=== PATIENT | male | born 1955 | race Caucasian/White ===

== ENCOUNTER 2017-09-17 21:13 | Emergency (ER) | payer OTHER ==
--- NOTE | 2017-09-17 21:27 | PDOC ---
Rapid Medical Evaluation Chief Complaint: Chest Pain Time Seen by Provider: 09/17/17 21:19 Medical Evaluation: 09/17/17 21:20 Pt is a 61 yr old with c/o chest pain. EKG obtained in triage, nsr without ectopy Pt with c/o chest pain, radiates tot he back of neck started about one hour. PHM: DM, HTN, anxiety. Appears anxious while in triage. No signs of sob and can speak full sentences. Feels palpitations occuring Suspicious for anxiety attack. ordered ekg, labs, cardiac
[2017-09-17 21:28] VITALS: BP 131/87; PULSE 107; TEMP 98.1; BMI 37.2
--- NOTE | 2017-09-17 21:45 | PDOC ---
History of Present Illness - General Chief Complaint: Chest Pain Stated Complaint: CHEST PAIN Time Seen by Provider: 09/17/17 21:19 - History of Present Illness Initial Comments: 09/17/17 22:32 The patient is a 61 year old male with a history of HTN, HLD, DM who presents for evaluation of SOB and chest tightness. The patient reports onset of SOB and chest tightness in the setting of extreme anxiety earlier today with his symptoms since resolving on presentation to the ED. He reports similar symptoms in the past with various episode unrelated to exertion. He otherwise denies fevers, chills, nausea, vomiting, abdominal pain, or changes with urination or bowel movements. Past History - Past Medical History Allergies/Adverse Reactions: Allergies Allergy/AdvReac Type Severity Reaction Status Date / Time No Known Allergies Allergy Verified 09/17/17 21:28 Home Medications: Ambulatory Orders Insulin Degludec [Tresiba Flextouch U-100] 2 unit SQ DAILY 09/17/17 Valsartan 160 mg PO DAILY 09/17/17 COPD: No Diabetes: Yes HTN: Yes Hypercholesterolemia: Yes Psychiatric Problems: Yes (anxiety) - Surgical History Appendectomy: Yes Cholecystectomy: Yes - Suicide/Smoking/Psychosocial Hx Smoking History: Never smoked Have you smoked in the past 12 months: No Information on smoking cessation initiated: No Hx Alcohol Use: No Drug/Substance Use Hx: No Substance Use Type: None Review of Systems - Review of Systems Comments:: 09/17/17 22:33 Constitutional: No fevers, chills, fatigue, malaise HEENT: No Rhinorrhea, nasal congestion, visual changes Cardiovascular: Chest Tightness. No syncope, palpitations, lightheadedness Respiratory: SOB. No Cough, Hemoptysis, Gastrointestinal: No Abdominal pain, Nausea, Vomiting, Constipation, Diarrhea, Melena Genitourinary: No Dysuria, Frequency, Urgency, Hesitancy, Hematuria, Flank pain Musculoskeletal: No Myalgia, arthralgia Skin: No rashes, itching, bruising, pallor Neurologic: No Headache, Dizziness, Numbness, Weakness, or Tingling Psychiatric: No Hallucinations. No SI or HI *Physical Exam - Vital Signs Last Vital Signs Temp Pulse Resp BP Pulse Ox 98.1 F 107 H 22 131/87 98 09/17/17 21:23 09/17/17 21:23 09/17/17 21:23 09/17/17 21:23 09/17/17 21:23 - Physical Exam Comments: 09/17/17 22:34 General Appearance: Nourished. No Apparent Distress HEENT: EOMI, LAUREN. No Pharyngeal Erythema, Tonsillar Exudate, Tonsillar Erythema Neck: No Cervical Lymphadenopathy Respiratory/Chest: Lungs Clear, Normal Breath Sounds. No Crackles, Rales, Rhonchi, Wheezing Cardiovascular: Regular Rhythm, Regular Rate. No Murmur, Gallops, Rubs Gastrointestinal/Abdominal: Normal Bowel Sounds, Soft. No Guarding, Rebound, Tenderness Musculoskeletal: No CVA Tenderness Extremity: Normal Capillary Refill Integumentary: Normal Color, Dry, Warm Neurologic: Fully Oriented, Alert, Normal Mood/Affect, Normal Response, Heart Score/ECG Review #1 ECG reviewed & interpreted by me at: 22:35 General ECG Interpretation: Sinus Rhythm, Normal Rate, Normal Intervals, No acute ischemic changes ED Treatment Course - LABORATORY CBC & Chemistry Diagram: 09/17/17 21:52 09/17/17 21:52 Medical Decision Making - Medical Decision Making 09/17/17 22:35 The patient is a 61 year old male with a history of HTN, HLD, DM who presents for evaluation of SOB and chest tightness. Differential includes but is not limited to: Anxiety, ACS, Pneumonia, infectious, metabolic derangement. Given the patient's history, normal physical exam, and resolution of symptoms here in the ED, it is likely his symptoms are due to an anxiety attack. However, we will obtain a cbc, cmp, troponin, ekg, and chest plain film to evaluate for other etiologies. We will continue to monitor and reassess. 09/17/17 22:51 CBC, cmp, troponin are unremarkable. Chest plain film is unremarkable as preliminarily read by ER physician. EKG is unremarkable. The patient's symptoms are likely due to an anxiety attack. We are comfortable discharging the patient home at this time with primary care provider follow up. We discussed the plan and return precautions with the patient who voiced understanding and is agreeable with the plan. *DC/Admit/Observation/Transfer Diagnosis at time of Disposition: Anxiety attack - Discharge Dispostion Disposition: HOME Condition at time of disposition: Good Admit: No - Referrals - Patient Instructions Printed Discharge Instructions: DI for Anxiety -- Adult, DI for Atypical Chest Pain Additional Instructions: Please return to the ER if you experience concerning or worsening symptoms including worsening chest pain, difficulty breathing, fevers, or vomiting. Your lab results and x-ray were normal here in the ER. Your symptoms were likely due to an anxiety attack. Please call to schedule a follow up appointment with your primary care provider to discuss your ER visit and further management of your symptoms. - Post Discharge Activity
[2017-09-17 22:06] LABS: BASO % 0.8 % (0-2.0); EOS % 1.9 % (0-4.5); HEMATOCRIT 40.6 % (35.4-49); HEMOGLOBIN 13.3 GM/dL (11.7-16.9); LYMPH % 21.3 % (8-40); MCH 26.9 pg (25.7-33.7); MCHC 32.7 g/dl (32.0-35.9); MEAN CELL VOLUME 82.3 fl (80-96); MEAN PLT VOLUME 7.7 fl (7.5-11.1); MONO % 6.7 % (3.8-10.2); NEUT % 69.3 % (42.8-82.8); PLATELET COUNT 307 K/MM3 (134-434); RBC 4.93 M/mm3 (4.00-5.60); RDW 14.3 % (11.9-15.9); WHITE BLOOD COUNT 8.3 K/mm3 (4.0-10.0)
--- NOTE | 2017-09-17 22:18 | PDOC ---
Attending Attestation - HPI HPI: 09/17/17 22:28 The patient is a 61 year old male with a significant PMH of diabetes, HTN, and hyperlipidemia who presents to the emergency department with an episode of shortness of breath and chest tightness beginning approximately this morning. The patient reports feeling shortness of breath with associated chest tightness in the setting of significant anxiety this morning. He reports his symptoms have significantly improved since being in the ED. The patient reports these symptoms are similar to his previous anxiety episodes, prompting his visit. The patient notes he does not follow with a financial foundations representative. Allergies: NKA PCP: Dr. Brown (in [place]) <Luis House - Last Filed: 09/17/17 22:29> - Resident Resident Name: Dejan Gant - ED Attending Attestation I have performed the following: I have examined & evaluated the patient, The case was reviewed & discussed with the resident, I agree w/resident's findings & plan, Exceptions are as noted - Physicial Exam PE: 09/18/17 19:25 *Physical Exam General Appearance: Yes: Appropriately Dressed. No: Apparent Distress, Intoxicated HEENT: positive: EOMI, LAUREN, Normal ENT Inspection, Normal Voice, TMs Normal, Pharynx Normal. negative: Pale Conjunctivae, Photophobia, Scleral Icterus (R), Scleral Icterus (L) Neck: positive: Trachea midline, Normal Thyroid, Supple. negative: Tender, Rigid, Carotid bruit, Stridor, Lymphadenopathy (R), Lymphadenopathy (L), Thyromegaly Respiratory/Chest: positive: Lungs Clear, Normal Breath Sounds. negative: Chest Tender, Respiratory Distress, Accessory Muscle Use, Labored Respiration, RES, Crackles, Rales, Rhonchi, Stridor, Wheezing, Dullness Cardiovascular: positive: Regular Rhythm, Regular Rate, S1, S2. negative: Edema , JVD, Murmur, Bradycardia, Tachycardia Vascular Pulses: Dorsalis-Pedis (R): 2+, Doralis-Pedis (L): 2+ Gastrointestinal/Abdominal: positive: Normal Bowel Sounds, Flat, Soft. negative : Tender, Organomegaly, Pulsatile Mass, Increased Bowel Sounds, Decreased BS, Distended, Guarding, Rebound, Hernia, Hepatomegaly, Spleenomegaly Lymphatic: negative: Adenopathy, Tenderness Musculoskeletal: positive: Normal Inspection. negative: CVA Tenderness, Decreased Range of Motion Extremity: positive: Normal Capillary Refill, Normal Inspection, Normal Range of Motion, Pelvis Stable. negative: Tender, Pedal Edema, Swelling, Erythema Integumentary: positive: Normal Color, Dry, Warm. negative: Cyanotic, Erythema , Jaundice, Rash Neurologic: positive: waistline joiner overlock II-XII NML intact, Fully Oriented, Alert, Normal Mood/ Affect, Motor Strength 5/5. negative: EOM Palsy, Facial Droop, Sensory Deficit - Medical Decision Making 09/18/17 19:25 pt treated and released <Walter Parnell - Last Filed: 09/18/17 19:25>
[2017-09-17 22:26] LABS: ALBUMIN 3.3 g/dl (3.4-5.0); ALK PHOS 98 U/L (45-117); ANION GAP 10 (8-16); BILIRUBIN,TOTAL 0.3 mg/dL (0.2-1.0); BLOOD UREA NITROGEN 10 mg/dL (7-18); CALCIUM 8.4 mg/dL (8.5-10.1); CHLORIDE 102 mmol/L (98-107); CO2 28 mmol/L (21-32); GLUCOSE,RANDOM 157 mg/dL (74-106); POTASSIUM 3.9 mmol/L (3.5-5.1); SGOT/AST 16 U/L (15-37); SGPT/ALT 20 U/L (12-78); SODIUM 140 mmol/L (136-145); TOT PROT 7.7 g/dl (6.4-8.2)
--- NOTE | 2017-09-18 16:40 | EKG ---
Test Reason : Blood Pressure : / mmHG Vent. Rate : 082 BPM Atrial Rate : 082 BPM P-R Int : 148 ms QRS Dur : 104 ms QT Int : 372 ms P-R-T Axes : 044 030 030 degrees QTc Int : 434 ms NORMAL SINUS RHYTHM NORMAL ECG NO PREVIOUS ECGS AVAILABLE Confirmed by SHYLA RYDER MD ([id number]) on 09/18/2017 4:39:47 PM Referred By: Confirmed By:SHYLA RYDER MD
== END 2017-09-17 23:09 | disposition home or self-care (01) ==
LOC: JER 21:13
DX: F41.0 Panic disorder [episodic paroxysmal anxiety] (principal); I10 Essential (primary) hypertension; E78.5 Hyperlipidemia, unspecified; E11.9 Type 2 diabetes mellitus without complications
CPT/HCPCS: 36415; 71045-TC-FY; 80053; 82550; 84484; 85025; 93005; 93010; 99283-25